=== PATIENT | male | born 1970 | race African-American/Black ===

== ENCOUNTER 2018-11-01 22:59 | Inpatient (IN) | payer OTHER ==
[2018-11-01] MEDS ORDERED: NS 0.9% 1000 ML** 1,000 ML IV ONE (23:02)
--- NOTE | 2018-11-01 23:07 | ED ---
Complex/Multi-Sys Presentation - HPI Summary HPI Summary: A 48 y/o M inmate brought in by ambulance presents to ED s/p suicide attempt onset [employer]. Patient was found hanging from a rope with a bag over his head, unresponsive and not breathing. It is unknown how long he was in that state. Detention staff got him down and began CPR. Pt's pulse returned and he began breathing. Per EMS, pt seized for "quite a while" was incontinent and unresponsive during that time. He was given Versed 4mg IV twice en route. Upon arrival, at bedside, patient states he can "taste" another sz coming. Pt has a PMHx: sz, and he says he takes Keppra, Dilantin, Gabapentin. He also complains of CP and RUE pain. CAT code called at 2300. - History Of Current Complaint Hx Obtained From: Patient, EMS, Medical Records, Other: - correctional staff Onset/Duration: Sudden Onset, Still Present Associated Signs And Symptoms: Positive: Chest Pain, Other - pos: suicide attempt, seizure, incontinence, unresponsiveness, RUE pain - Allergies/Home Medications Allergies/Adverse Reactions: Allergies Allergy/AdvReac Type Severity Reaction Status Date / Time NSAIDS (Non-Steroidal Allergy Unknown Verified 11/01/18 23:54 Anti-Inflamma Reaction Details Home Medications: Home Medications Ammonium Lactate 12% [Lac-Hydrin 12 %] 1 applic TOPICAL DAILY 11/02/18 [History Confirmed 11/02/18] Lisinopril [Lisinopril 2.5 MG-] 2.5 mg PO DAILY 11/02/18 [History Confirmed ] Phenytoin CAP(*) [Dilantin CAP(*)] 100 mg PO TID 11/02/18 [History Confirmed ] Tolnaftate [Tinactin] 1 applic TOPICAL DAILY 11/02/18 [History Confirmed ] levETIRAcetam [Keppra] 1,000 mg PO BID 11/02/18 [History Confirmed 11/02/18] raNITIdine HCl [Zantac 150 Maximum Streng] 150 mg PO DAILY 11/02/18 [History Confirmed 11/02/18] PMH/Surg Hx/FS Hx/Imm Hx Previously Healthy: No Cardiovascular History: Reports: Hx Hypertension Respiratory History: Reports: Hx Chronic Obstructive Pulmonary Disease (COPD) Neurological History: Reports: Hx Seizures - Family History Known Family History: Positive: Unknown - Social History Occupation: Unemployed - inmate Lives: Assisted - inmate Hx Tobacco Use: Yes Review of Systems Positive: Chest Pain Positive: Other - pos: not breathing (resolved) Positive: incontinence Musculoskeletal: Other - RUE pain Neurological: Other - pos: seizure; unresponsive (resolved) Psychological: Other - pos: suicide attempt All Other Systems Reviewed And Are Negative: Yes Physical Exam - Summary Physical Exam Summary: Appearance: male lying on stretcher answering questions appropriately Skin: Warm, dry, no obvious rash Eyes: sclera anicteric, no conjunctival pallor ENT: mucous membranes moist, pharynx appears normal. Voice is minimally hoarse. Neck: Supple, nontender. Red ligature carlisle. Respiratory: Clear to auscultation, no signs of respiratory distress. No stridor. Cardiovascular: Normal S1, S2. No murmurs. Normal distal pulses in tibial and radial bilaterally. Abdomen: Soft, nontender, normal active bowel sounds present Musculoskeletal: Normal, Strength/ROM Intact Neurological: Alert but slightly confused, he knows his name and where he is, but does not know the month or year. Psychiatric: affect is normal, does not appear anxious or depressed Triage Information Reviewed: Yes Vital Signs Reviewed: Yes - Maryjane Coma Scale Best Eye Response: 4 - Spontaneous Best Motor Response: 6 - Obeys Commands Best Verbal Response: 5 - Oriented Coma Scale Total: 15 Diagnostics - Laboratory Result Diagrams: 11/01/18 23:29 11/01/18 23:29 Lab Statement: Any lab studies that have been ordered have been reviewed, and results considered in the medical decision making process. - CT BRAIN CT Interpretation Completed By: Radiologist Summary of CT Findings: IMPRESSION: 1. No acute intracranial pathology. 2. Prominent left basal ganglia perivascular space, and less likely old lacunar infarct. 3. Mild mucosal thickening of the paranasal sinuses. ED provider has reviewed this report. C-SPINE CT Interpretation Completed By: Radiologist Summary of CT Findings: IMPRESSION: No acute cervical spine fracture. ED provider has reviewed this report. - EKG 2307 Cardiac Rate: NL - 81bpm EKG Rhythm: Sinus Rhythm Summary of EKG Findings: NSR at 81 BPM, P waves, QRS complex, and T waves are within normal limits, T waves and intervals are normal, no ischemic changes. Complex Multi-Symp Course/Dx Course Of Treatment: Pt is a 48 y/o M inmate brought in by ambulance presents to ED s/p suicide attempt. Patient was found hanging from a rope with a bag over his head, unresponsive and not breathing, for an unknown duration. Detention staff got him down and began CPR. Pt's pulse returned and he began breathing. Per EMS, pt seized for "quite a while" was incontinent and unresponsive during that time. He was given Versed 4mg IV twice en route. Upon arrival, at bedside, patient states he can "taste" another sz coming. Pt has a PMHx: sz, and he says he takes Keppra, Dilantin, Gabapentin. He also complains of CP and RUE pain. UA results are unremarkable. C-SPINE is negative for fracture. EKG is NSR at 81 BPM, P waves, QRS complex, and T waves are within normal limits, T waves and intervals are normal, no ischemic changes. Consulted with Dr. Kendrick, hospitalist, who accepts pt for admission to ICU. - Diagnoses Provider Diagnoses: Depressive disorder, Suicide attempt by hanging, Seizures, Status epilepticus - Physician Notifications Discussed Care Of Patient With: Shana Kendrick - hospitalist Time Discussed With Above Provider: 23:39 Instructed by Provider To: Other - Discussed case. Will discuss with ICU and call back. At 00:42, accepted pt for admission to ICU. - Critical Care Time Critical Care Time: 30-74 min Discharge - Sign-Out/Discharge Documenting (check all that apply): Patient Departure - ADMIT TO ICU - Discharge Plan Condition: Critical Disposition: ADMITTED TO [facility] - Billing Disposition and Condition Condition: CRITICAL Disposition: Admitted to [facility] - Attestation Statements Document Initiated by Scribe: Yes Documenting Scribe: Bambi Ordoñez Provider For Whom Scribe is Documenting (Include Credential): Dr. Bari Montes MD Scribe Attestation: Bambi Lieberman, scribed for Dr. Bari Montes MD on 11/02/18 at 0524. Scribe Documentation Reviewed: Yes Provider Attestation: The documentation as recorded by the Bambi simon accurately reflects the service I personally performed and the decisions made by me, Dr. Bari Montes MD Status of Scribe Document: Viewed
[2018-11-01] MEDS ORDERED: LORazepam INJ* 2 MG/ML 1 ML VIAL ONE (23:08)
[2018-11-01] MEDS ORDERED: LORazepam INJ* 2 MG/ML 1 ML VIAL IV PUSH ONE ×2 (23:36)
[2018-11-01 23:39] LABS: ABS Basophils 0.1 10^3/ul (0-0.2); ABS Eosinophils 0.4 10^3/ul (0-0.6); ABS Lymphocytes 1.9 10^3/ul (1.0-4.8); ABS Monocytes 0.7 10^3/ul (0-0.8); ABS Neutrophils 8.6 10^3/ul (1.5-7.7); ABS Nucleated RBC 0 10^3/ul; Eosinophil % 3.4 %; Hematocrit 41 % (42-52); Lymphocyte % 16.5 %; Mean Corpuscular HGB Conc 34 g/dl (31-36); Mean Corpuscular Hemoglobin 31 pg (27-31); Mean Corpuscular Volume 90 fL (80-94); Mean Platelet Volume 8.3 fL (7.4-10.4); Nucleated Red Blood Cells % 0; Platelet Count 201 10^3/ul (150-450); Red Cell Distribution Width 13 % (10.5-15); White Blood Count 11.6 10^3/ul (3.5-10.8)
[2018-11-01 23:55] LABS: Albumin 3.8 g/dL (3.2-5.2); Albumin/Globulin Ratio 1.5 (1-3); BUN/Creatinine Ratio 10.7 (8-20); Calcium 8.7 mg/dL (8.6-10.3); EGFR African American 135.1 (>60); EGFR Non-African American 111.6 (>60); Globulin 2.6 g/dL (2-4); Potassium 3.4 mmol/L (3.5-5.0); Total Bilirubin 0.3 mg/dL (0.2-1.0); Total Protein 6.4 g/dL (6.4-8.9)
[2018-11-02 00:01] LABS: Phenytoin 10.9 mcg/mL (10-20)
[2018-11-02] MEDS ORDERED: Ondansetron INJ* 2 MG/ML VIAL IV PRN (01:04)
[2018-11-02] MEDS ORDERED: NS 0.9% IV ONE (01:05)
[2018-11-02] MEDS ORDERED: PHENYTOIN IV ONE (01:05)
[2018-11-02] MEDS ORDERED: KCL 20 MEQ/100 ML IVPREMIX* 20 MEQ/100 ML BAG IV ONE (01:07)
[2018-11-02 01:10] LABS: Urine Appearance Clear; Urine Bilirubin Negative (Negative); Urine Blood Negative (Negative); Urine Color Yellow; Urine Glucose Negative (Negative); Urine Ketones Negative (Negative); Urine Nitrite Negative (Negative); Urine Protein Negative (Negative); Urine Specific Gravity 1.005 (1.010-1.030); Urine Urobilinogen Negative (Negative)
--- NOTE | 2018-11-02 01:48 | PN ---
Sepsis Event Evaluation Date of Evaluation: 11/02/18 Time of Evaluation: 01:47 Current Stage of Sepsis: Sepsis Vital Signs - Last 12 Hours: Vital Signs - 12 hr Temp Pulse Resp BP Pulse Ox 11/02/18 00:35 75 0 127/75 95 11/02/18 00:22 74 14 105/71 93 11/02/18 00:17 71 15 116/69 93 11/02/18 00:12 75 13 116/65 93 11/02/18 00:07 74 15 115/68 92 11/02/18 00:04 72 15 95 11/02/18 00:03 70 14 120/73 95 11/01/18 23:47 76 4 123/72 91 11/01/18 23:42 76 0 117/72 91 11/01/18 23:37 77 6 121/74 89 11/01/18 23:32 74 1 121/77 93 11/01/18 23:30 81 13 133/73 96 11/01/18 23:22 78 11 117/67 100 11/01/18 23:19 97.6 F 78 18 115/75 94 11/01/18 23:17 87 22 137/68 93 11/01/18 23:15 18 11/01/18 23:12 20 135/74 11/01/18 23:10 18 11/01/18 23:07 84 13 128/74 96 11/01/18 23:06 82 21 95 11/01/18 23:02 99 24 115/75 96 Lactic Acid: 11/01/18 23:30 Lactic Acid 1.2 - Cardiopulmonary Exam Capillary Refill: < or = to 5 seconds Respiratory: Symmetrical Chest Expansion and Respiratory Effort, Clear to Auscultation Cardiovascular: NL Sounds; No Murmurs; No JVD, RRR, No Edema - Peripheral Pulse Exam Radial Pulses: Bilateral Normal - Skin Exam Skin Exam: Pallor - [place] Coma Scale Best Eye Response: 4 - Spontaneous Best Motor Response: 6 - Obeys Commands Best Verbal Response: 5 - Oriented Coma Scale Total: 15 Assess/Plan/Problems-Billing Assessment:
--- NOTE | 2018-11-02 03:47 | HP ---
CC: Provider at [facility] * HISTORY AND PHYSICAL: DATE OF ADMISSION: 11/02/18 PRIMARY CARE PROVIDER: Provider at [facility]. CHIEF COMPLAINT: Cardiac arrest, status post hanging as a suicide attempt. HISTORY OF PRESENT ILLNESS: Mr. Guerra is a 48-year-old male who has a history of a seizure disorder, COPD, and hypertension, who presented to the emergency room after he was found hanging in his nursing home cell. The patient was unable to provide any history related to this while the guards state that he was found at approximately 10 p.m.; however, according to the emergency response form that comes from [facility], code was called at 9:50 p.m. CPR was started at 9:53 p.m. AED was applied at 9:58 p.m. and CPR was stopped at 10 :01 p.m. The patient did receive also 2 doses of IM Narcan. When the patient was found, he was reportedly found with a bag over his head hanging. He had to be cut down. The patient states that he tried to kill himself because he no longer wanted to be around. He does state that he had been lonely over the last few days. Reportedly, the patient by 10:11 p.m. was responding. The patient was brought in via [facility]. Reportedly en route, the patient had seizure activity. He was given 8 mg of Versed in the ambulance. Upon arrival, the patient again was noted to have seizure activity. He was given 4 mg of Ativan. At this point, the patient is somewhat sedated, though he does wake up and answers questions at times appropriately and other times with inappropriate answers. The patient currently is only complaining of pain in his right forearm and elbow area. He states that that developed this evening. He also states that his breathing feels somewhat slow. PAST MEDICAL HISTORY: 1. Seizure disorder. 2. COPD. 3. Hypertension. PAST SURGICAL HISTORY: 1. Hernia repair. 2. Left femur repair. MEDICATIONS: 1. Ranitidine 150 mg p.o. daily. 2. Keppra 1000 mg p.o. b.i.d. 3. Tinactin, apply topically daily. 4. Phenytoin 100 mg p.o. t.i.d. 5. Lisinopril 2.5 mg p.o. daily. 6. Ammonium lactate, apply topically daily. ALLERGIES: NSAIDS. FAMILY HISTORY: Unknown. SOCIAL HISTORY: The patient does smoke. He denies any recreational drug use. He is currently incarcerated at [facility]. He states that he is . He has 7 children. REVIEW OF SYSTEMS: The patient answers essentially 'yes' to every question asked, including fevers, chills, poor appetite, edema. He denies chest pain. He does admit to occasional cough and shortness of breath. He admits to nausea , vomiting. He admits to abdominal pain that has been crampy in nature. He complains of the right arm pain. Complains of being depressed and feeling lonely recently. The rest of the 11 system review of systems is negative. PHYSICAL EXAMINATION GENERAL: The patient is a well-developed, middle-aged male seen lying flat in the stretcher, in a cervical collar, in no acute distress. VITAL SIGNS: Blood pressure 127/75, pulse 75, respirations 14, temp 97.6, and O2 sat 95% on room air. HEENT: Pupils are equal and round. Extraocular muscles are intact. The conjunctivae are injected. Oropharynx is clear. Oral mucosa is moist. NECK: Not performed as the patient is in cervical collar. PULMONARY: Lungs are clear anteriorly and at the lateral bases. CARDIAC: Normal S1 and S2. Regular rate and rhythm. I do not appreciate any murmurs. ABDOMEN: Bowel sounds are present. Abdomen is soft, nondistended. He complains of tenderness to palpation in the bilateral lower quadrants. MUSCULOSKELETAL: There is full active range of motion of all 4 extremities. The patient does complain of right forearm pain with active range of motion and palpation. SKIN: Warm and dry. There is ligature jerzy around the patient's neck. There is a small shallow ulceration in the anterior midline neck. NEUROLOGIC: Cranial nerves II through XII appeared to be grossly intact. Sensation is intact to light touch throughout. Strength is normal throughout though the patient does not give a good effort. PSYCH: The patient is alert. He is oriented to situation. He does drift to sleep easily. LABORATORY DATA: WBC 11.6, hemoglobin 14.0, hematocrit 41, platelets 201. Sodium 137, potassium 3.4, chloride 106, CO2 of 25. BUN 8, creatinine 0.75. Glucose 77. Lactic acid 1.2. Calcium 8.7. Bilirubin 0.3. AST 19, ALT 21, alk phos 110. Albumin 3.8. Phenytoin 10.9. IMAGING STUDIES: EKG reveals normal sinus rhythm without any acute ST-T wave abnormalities. CT brain reveals no acute intracranial pathology. Prominent left basal ganglia, perivascular space and less likely old lacunar infarct. Mild mucosal thickening of the paranasal sinuses. CT cervical spine reveals no acute cervical spine fracture. ASSESSMENT AND PLAN: Mr. Guerra is a 48-year-old male with a history of seizure disorder, prior suicide attempt based on records from [facility], and chronic obstructive pulmonary disease, who presents to the emergency room after he was found hanging in his nursing home cell without a pulse, with initiation of CPR and return of spontaneous circulation, followed by seizure activity en route to the hospital and in the emergency room. 1. Cardiac arrest. At this point, the patient has returned to spontaneous circulation and is awake. He will be monitored in the intensive care unit on telemetry. No further interventions will be needed at this time. 2. Hanging attempt. The patient does have ligature carlisle around his neck. Local wound care will be performed. We will need to discuss with [facility] if the patient needs psychiatry consultation while in the hospital or if they will manage from the correction. 3. Seizure disorder. The patient reportedly had seizures en route to the hospital and in the ER. It is unclear how long or if the patient was hypoxic/ anoxic. I did speak with Dr. Mills. Due to his seizure activity and a low- normal phenytoin level, he recommended administering phenytoin 300 mg IV x1 followed by resuming the patient's usual dose. The patient will need the phenytoin level in a couple of days. 4. Chronic obstructive pulmonary disease. There are no signs of exacerbation at this point. We will monitor. 5. Hypertension. The patient's blood pressure is under good control. We will continue lisinopril 2.5 mg p.o. daily. 6. DVT prophylaxis: According to the Adult Thrombosis Prophylaxis Risk Factor Assessment Guide, the patient has a total risk factor score of 2 making him moderate risk. Heparin 5000 units subcutaneous q.12 hours will be utilized for DVT prophylaxis. Code status is full. TIME SPENT: 65 minutes of critical care time was spent on this admission. [id number]/[facility] #: [id number] [facility]
[2018-11-02] MEDS: NS 0.9% 1000 ML** 1,000 ML IV SCH ×2 (04:46→12:08)
[2018-11-02 05:56] LABS: Hematocrit 41 % (42-52); Mean Corpuscular HGB Conc 34 g/dl (31-36); Mean Corpuscular Hemoglobin 31 pg (27-31); Mean Corpuscular Volume 91 fL (80-94); Mean Platelet Volume 8.7 fL (7.4-10.4); Platelet Count 198 10^3/ul (150-450); Red Blood Count 4.54 10^6/ul (4.00-5.40); Red Cell Distribution Width 14 % (10.5-15); White Blood Count 10.8 10^3/ul (3.5-10.8)
[2018-11-02 06:16] LABS: BUN/Creatinine Ratio 12.1 (8-20); Calcium 8.8 mg/dL (8.6-10.3); EGFR African American 181.7 (>60); EGFR Non-African American 150.2 (>60); Potassium 3.8 mmol/L (3.5-5.0)
[2018-11-02] MEDS: Acetaminophen TAB* 325 MG PO PRN ×3 (07:01→22:29)
[2018-11-02] MEDS: Phenytoin CAP(*) 100 MG CAP.ER PO SCH ×3 (08:58→20:21)
[2018-11-02] MEDS: Heparin VIAL(*) 5000 UNITS/ML VIAL (FIVE THOUSAND) SUBCUT SCH ×2 (08:58→20:21)
[2018-11-02] MEDS: Famotidine TAB* 20 MG PO SCH (08:58)
[2018-11-02] MEDS: Lisinopril TAB* 5 MG PO SCH (08:59)
[2018-11-02] MEDS ORDERED: levETIRAcetam TAB* 500 MG PO SCH (09:00)
--- NOTE | 2018-11-02 10:02 | PN ---
Subjective Date of Service: 11/02/18 Interval History: pt c/o pain in the left side of his ribs (pleuritic) after CPR last night. Pt tried to commit suicide a year ago also at another long-term. Had been incarcerated x 13 years, planned to be released in one year Use to be on gabapentin /Keppra/Dilantin, then Gabapentin was stopped and pt started having up to 3 seizures in a week in the past several months Objective Active Medications: Acetaminophen (Tylenol Tab*) 650 mg PO Q4H PRN PRN Reason: PAIN Last Admin: 11/02/18 07:01 Dose: 650 mg Famotidine (Pepcid Tab*) 20 mg PO DAILY [facility]; Protocol Last Admin: 11/02/18 08:58 Dose: 20 mg Heparin Sodium (Porcine) (Heparin Vial(*)) 5,000 units SUBCUT Q12HR [facility] Last Admin: 11/02/18 08:58 Dose: 5,000 units Sodium Chloride (Ns 0.9% 1000 Ml*) 1,000 mls @ 150 mls/hr IV PER RATE [facility] Last Admin: 11/02/18 04:46 Dose: 150 mls/hr Levetiracetam (Keppra Tab*) 1,000 mg PO BID [facility] Last Admin: 11/02/18 08:59 Dose: 1,000 mg Lisinopril (Prinivil Tab*) 2.5 mg PO DAILY [facility] Last Admin: 11/02/18 08:59 Dose: 2.5 mg Ondansetron HCl (Zofran Inj*) 4 mg IV Q6H PRN PRN Reason: NAUSEA Phenytoin Sodium (Dilantin Cap(*)) 100 mg PO TID [facility] Last Admin: 11/02/18 08:58 Dose: 100 mg Vital Signs - 8 hr 11/02/18 11/02/18 11/02/18 02:06 02:20 02:35 Temperature Pulse Rate Respiratory 9 13 10 Rate Blood Pressure 110/63 119/76 119/72 (mmHg) O2 Sat by Pulse Oximetry 11/02/18 11/02/18 11/02/18 02:50 02:54 03:00 Temperature 98.2 F 98.3 F Pulse Rate 67 Respiratory 11 16 13 Rate Blood Pressure 127/71 127/71 (mmHg) O2 Sat by Pulse 95 Oximetry 0111/02/18 11/02/18 03:05 03:20 03:43 Temperature Pulse Rate 74 Respiratory 14 12 14 Rate Blood Pressure 127/79 132/79 127/87 (mmHg) O2 Sat by Pulse 98 Oximetry 11/02/18 11/02/18 11/02/18 03:45 04:00 04:01 Temperature 98.3 F Pulse Rate 67 65 64 Respiratory 8 13 13 Rate Blood Pressure 144/91 123/80 (mmHg) O2 Sat by Pulse 98 96 97 Oximetry 11/02/18 11/02/18 11/02/18 04:15 04:30 04:45 Temperature Pulse Rate 62 62 63 Respiratory 12 14 12 Rate Blood Pressure 127/78 131/80 118/71 (mmHg) O2 Sat by Pulse 95 95 94 Oximetry 11/02/18 11/02/18 11/02/18 05:00 05:01 05:15 Temperature Pulse Rate 59 61 63 Respiratory 15 10 11 Rate Blood Pressure 112/71 121/71 (mmHg) O2 Sat by Pulse 93 94 93 Oximetry 11/02/18 11/02/18 11/02/18 05:30 05:47 06:00 Temperature Pulse Rate 61 62 59 Respiratory 12 12 11 Rate Blood Pressure 116/70 119/69 105/66 (mmHg) O2 Sat by Pulse 94 95 96 Oximetry 11/02/18 11/02/18 11/02/18 06:01 06:15 06:30 Temperature Pulse Rate 59 58 60 Respiratory 13 11 13 Rate Blood Pressure 113/68 114/65 (mmHg) O2 Sat by Pulse 95 95 95 Oximetry 11/02/18 11/02/18 11/02/18 06:45 07:00 07:01 Temperature Pulse Rate 58 70 65 Respiratory 13 15 11 Rate Blood Pressure 111/69 111/69 (mmHg) O2 Sat by Pulse 95 94 95 Oximetry 11/02/18 11/02/18 11/02/18 07:15 07:30 08:00 Temperature 98.5 F Pulse Rate 64 57 Respiratory 15 10 Rate Blood Pressure 113/65 122/65 (mmHg) O2 Sat by Pulse 94 95 Oximetry Oxygen Devices in Use Now: None Appearance: 48 yo M in nAD, aAOx3 Eyes: No Scleral Icterus, PERRLA Ears/Nose/Mouth/Throat: NL Teeth, Lips, Gums, Mucous Membranes Moist Neck: NL Appearance and Movements; NL JVP, Trachea Midline Respiratory: Symmetrical Chest Expansion and Respiratory Effort, Clear to Auscultation Cardiovascular: NL Sounds; No Murmurs; No JVD, RRR Abdominal: NL Sounds; No Tenderness; No Distention, No Hepatosplenomegaly Lymphatic: No Cervical Adenopathy Extremities: No Edema, No Clubbing, Cyanosis Skin: No Nodules or Sclerosis, - - small anterior neck abrasion after ligature- approx 2 cm in diam, not infected Neurological: Alert and Oriented x 3, NL Muscle Strength and Tone Result Diagrams: 11/02/18 05:44 11/02/18 05:44 Microbiology and Other Data: Microbiology 11/02/18 05:30 Nasal Screen MRSA (PCR) - Final Nasal Mrsa Not Detected Assess/Plan/Problems-Billing Assessment: 48 yo prisoner with h/o suicidal attempts in the past and seizure disorder brought in from [place] after he tried to hang himself. Last suicidal attempt 1 yr ago. Pt received 5 m in CPR at long-term. Had a seizure en route to [facility] H/o seizure disorder with generalized tonic clonic seizures upt o 3x/week - Patient Problems (1) Suicide attempt by hanging Comment: apart for a small abrasion on neck and left sided pleuritic CP, pt feels well. Passed swalow eval and is back to regular diet. Psychiatry asked to see pt. Cont 1:1 obs. Transfer to med floor (2) Seizure Comment: pt stated that after gabapentin was d/c'd several months ago he has had 3 seizures/week. D/w / Lina. will check EEG, d/c Keppra(due to SI), cont Dilantin. Neuro will see in consult (3) Hypertension Comment: controlled, cont lisinopril (4) DVT prophylaxis Comment: low risk , ambulation Status and Disposition: inpatient
[2018-11-02] MEDS: Lidocaine PATCH 5%* 1 PATCH TRANSDERM SCH (11:35)
[2018-11-02] MEDS: Nicotine PATCH 14 MG/24 HR* PATCH TRANSDERM SCH (11:39)
--- NOTE | 2018-11-02 13:42 | CONS ---
CONSULTATION REPORT: DATE OF CONSULT: 11/02/18 PATIENT OF: Dr. Weaver and the provider at [facility]. HISTORY OF PRESENT ILLNESS: This is a 48-year-old man who had an attempted suicide yesterday when he was found hanging in his prison cell. He had a code with CPR and received Narcan. He is back to his baseline without any problems other than hurting arm following his arrest from his hanging, he had some seizure activity. He has a longstanding history of seizures, has been maintained on gabapentin and Dilantin. He had a suicidal attempt a year ago while on the gabapentin. In the past 2 to 3 months time, he was switched from gabapentin to Keppra and he continues to have seizures perhaps twice a week, as best as we can tell they are major motor seizures. PAST MEDICAL HISTORY: His past medical history significant for seizure disorder , COPD, hypertension. PAST SURGICAL HISTORY: Status post herniorrhaphy, left femur repair. MEDICATIONS: Include: 1. Dilantin 100 mg t.i.d. 2. Keppra 1000 mg b.i.d. 3. Tinactin topically daily. 4. Ranitidine 150 daily. 5. Lisinopril 2.5 daily. 6. Ammonium lactate topically daily. He is not on anything for his depression and he has some ongoing depression. ALLERGIES: He is allergic to NSAIDs. FAMILY HISTORY: His family is unknown. SOCIAL HISTORY: He smokes, does not drink or have recreational drug use. He is with 7 kids. REVIEW OF SYSTEMS: Negative in all 14 spheres other than some depression and occasional cough. PHYSICAL EXAM: Temperature 98.5, pulse 57, respirations 10, blood pressure 122/ 65. He is alert and oriented x3 with normal speech and comprehension. Cranial nerve II though XII were intact. Fundi were benign. Motor exam reveals normal tone and strength, coordination. Sensation is intact to light touch. Reflexes are 2+ and equal downgoing toes. Chest: Clear. Cardiovascular: Regular rate and rhythm. Abdomen: Soft, positive bowel sounds. DIAGNOSTIC STUDIES/LAB DATA: His cervical spine CT showed no acute cervical spine fracture. His brain CT scan showed no acute pathology. There is prominent left basal ganglia perivascular space. Labs include normal CBC. Normal CMP. Negative UA. Dilantin level 10.9. ASSESSMENT AND PLAN: Anil should not be on Keppra. It can cause or worsen depression in somebody who is depressed with a significant suicide attempt. He should not remain on the Keppra; we are stopping that. Since he has ongoing seizures, we will switch perhaps to Depakote, but I want to any an EEG first. It seems like he truly has organic seizures, whether there is a mixture of seizures secondary to psychological issue is hard to say, but the safest thing would be to substitute the Keppra with another anticonvulsant. Discussed with Dr. Weaver. My full recommendation will be after the EEG. Thank you for sharing this case. [id number]/[facility] #: [id number] [facility]
[2018-11-02] MEDS: Venlafaxine EXT RELEASE CAP* 75 MG PO SCH (14:46)
[2018-11-02] MEDS ORDERED: Divalproex DR TAB(*) 500 MG PO ONE (16:00)
--- NOTE | 2018-11-02 16:45 | CONS ---
CONSULTATION REPORT: DATE OF CONSULTATION: 11/02/18 DATE OF ADMISSION: 11/02/18 ATTENDING PHYSICIAN: Dr. Ann Weaver CONSULTING PHYSICIAN: Dr. Wilmer Burton. REASON FOR CONSULT: Suicide attempt. SUBJECTIVE HISTORY: The patient is a 48-year-old Nigerien immigrant who is currently incar cerated at the [facility], [facility] in [place], [place], who apparently had a suicide attempt via hanging, my understanding is that he was pulled down from a sheet in his room whe re he had a suicide note next to him. He needed cardiopulmonary resuscitation and they stated that a t the same time they administered Narcan, although it is uncertain whether he used opioid drugs. Fro m there, he was brought to the hospital and briefly hospitalized in our ICU, although he is pending t ransferred to the medical unit as his injuries do not require further intensive care. I understand t hat he has a history of a seizure disorder and apparently had a seizure while en route to the [facility]. Today, when I meet with him, he is somewhat sleepy, but able to make good eye contact and able to give his account. He states that his mood has been poor lately secondary to struggles with one of h is expartners, who has not been sending him as much money recently. 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 He states that he often hears their voices, talking to him and wonders why he lived when they did not. An additional source of pain is that sev eral years ago his 12- year-old son was murdered by a drug dealer while apparently attempting to isabel larize the drug dealer's car. The patient feels as though if he was out of shelter he could have prev ented this. The patient does endorse 1 prior suicide attempt in the summer of 2017. He apparently a ttempted to hang himself while prisoner at the [facility] in [place], [place]. From , he was sent to an ICU for approximately 1 week and from there transferred to the [facility] here in [facility]. [facility] then referred him to the [facility] in [place], [place] where he received treatment between May and July 8. Since returning to [facility], he has not endorse any further suicidal ideations. Much of this h istory was corroborated by the patient's social science instructor at the shelter whose name is Andrea Moreno. Nayla argueta Josh indicated that the patient would be placed on suicide precautions when he returns to their facility and would be referred once again to the [facility]. Symptomatically, the caryn ent is endorsing extreme anxiety auditory hallucinations, depressed mood. He is not manpreet for safety at this time, stating that he will likely kill himself if he does not return to the [facility] for further care. He notes that he is set to be released from shelter in approximately 10 mon ths. PAST PSYCHIATRIC HISTORY: The patient was treated at the [facility] in [place], [place] between May and July of 2018. He denies any prior psychiatric treatment be fore this. His diagnoses were PTSD, antisocial personality disorder and major depression. His medic ations currently include Effexor XR, Wellbutrin, prazosin and he states in the past he has used rispe ridone successfully for anxiety and he is requesting resumption of this. The patient denies any other attempts to end his other than the 2 hangings attempts while incarc erated. The patient's current psychiatrist is Dr. Guerin at [facility]. SUBSTANCE ABUSE HISTORY: The patient states that he is a social alcohol drinker. 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 Jail offic ials are requesting urine drug screen given the fact that he was revived with Narcan, however, this o ccurred at the same time as he was receiving chest compressions through CPR. MEDICAL HISTORY: Significant for seizure disorder, COPD, hypertension. He has had surgical history of hernia repair and left femur repair. MEDICATIONS: Include: 1. Ranitidine 150 mg daily. 2. Keppra 1000 mg twice daily. 3. Dilantin 100 mg t.i.d. 4. Effexor XR 150 mg daily. 5. Wellbutrin SR 100 mg b.i.d. 6. Prazosin 1 mg p.o. q.h.s. ALLERGIES: The patient states that he is allergic to NONSTEROIDAL ANTI- INFLAMMATORIES. FAMILY HISTORY: Noncontributory. SOCIAL HISTORY: The patient was born in [place] where he was recruited into a [employer] organization at the age of 15. He served with them until the age of 18 when he immigrated to the [place] in [facility]. The patient has been and . He has 7 different child travis, ages 15 to 32 from several different women, mostly he has resided in [place], although he had some family in [place] and it is his intention to return to [place] after release from shelter to reconnect with some of his children. He was arrested approximately 13 years ago and given 10 years i n care home of a burglary and attempt to sell narcotics. He states that his sentence was prolonged while in care home due to bad behavior. He does deny any history of violence towards others. The patient ident ifies as Shinto by upbringing. He is not currently romantically connected with anyone, although he states that he gets money from one of his children's mother. MENTAL STATUS EXAM: The patient is a middle-aged male with graying hair. He is laying on hi s back propped up in a medical bed in the ICU. He is accompanied by 1 hospital aide who is his one-t o-one along with 2 corrections officers. The patient is calm, cooperative, makes good eye contact. His speech is fluent Swedish with somewhat low tones, but he is able to articulate himself well. Moo d appears to be depressed with a constricted affect. Thought process is linear, goal- directed. Tho ught content is significant for suicidal ideations. He denies homicidality. Insight and judgment ar e fair given his willingness to receive psychiatric treatment. Cognitively, he is awake, although so mewhat sleepy. DIAGNOSES: As follows: Heth I: Major depressive disorder, recurrent, moderate, post-traumatic stres s disorder. Heth II: Antisocial personality disorder by history. IMPRESSION: The patient is a 48-year-old Nigerien immigrant with a history of early life c ombat exposure and [facility], who was sent by the [facility] after being discovered attempting to hang himself by a sheet in his rojas l. The patient is endorsing traumatic memories, depressed mood, anxiety, and auditory hallucinations and he is requesting referral back to the [facility] in [facility]. I have spoken with his social science instructor, Andrea Moreno at [facility], who indicates that the tea m there, including his psychiatrist, Dr. Guerin are intending to place him on suicide precautions and to refer him back to the [facility]. The patient is requesting continuation of his cur rent medications along with resumption of risperidone, which she states helps his hallucinations and anxiety. RECOMMENDATIONS TO PRIMARY TEAM: Psychiatry has placed orders for Risperdal, prazosin, Effexor and W ellbutrin. We will also place an order for urine drug screen at the request of the shelter, The caryn ent is denying use of substances of abuse. At this time, we recommend that he return for psychiatric treatment through the state correctional system. Psychiatry will be signing off at this time. Thank you for the consult. [id number]/[facility] #: [id number]
[2018-11-02] MEDS: buPROPion SR TAB.SR* 100 MG PO SCH (18:27)
[2018-11-02] MEDS: Lidocaine Patch REMOVE* 1 NOTE MISC SCH (20:21)
[2018-11-02] MEDS: Prazosin CAP* 1 MG PO SCH (20:21)
[2018-11-02] MEDS: Divalproex DR TAB(*) 250 MG PO SCH (20:21)
[2018-11-02] MEDS: risperiDONE TAB* 1 MG PO SCH (20:21)
--- NOTE | 2018-11-02 21:59 | EEG ---
ELECTROENCEPHALOGRAPHY: DATE OF STUDY: 11/02/18 - ROOM #403 PATIENT OF: Dr. Weaver. CLINICAL PROBLEM: This is a 48-year-old man with a longstanding history of seizures being evaluated after a suicide attempt by hanging. MEDICATIONS: Include: 1. Dilantin. 2. Famotidine. 3. Lisinopril. 4. Zofran. 5. Keppra. REPORT: With the patient awake, background cerebral activity consists of moderate amplitude, posterior dominant 8 Hz rhythm, which attenuates with eye opening, reappears with eye closure. At times, the patient becomes drowsy with some slowing into the theta range, but the patient never falls asleep. At times , there is some twitching in an arm or leg. This is not associated with any epileptiform potentials. No focal abnormalities, major asymmetries of background or epileptiform potentials were noted. CLINICAL IMPRESSION: This awake and drowsy EEG is within normal limits. [id number]/[facility] #: [id number] MTDD
[2018-11-02] MEDS: Docusate CAP* 100 MG PO PRN (22:29)
[2018-11-03] MEDS: Nicotine PATCH 14 MG/24 HR* PATCH TRANSDERM SCH (08:53)
[2018-11-03] MEDS: Venlafaxine EXT RELEASE CAP* 75 MG PO SCH (08:54)
[2018-11-03] MEDS: Acetaminophen TAB* 325 MG PO PRN ×2 (08:54→14:14)
[2018-11-03] MEDS: Phenytoin CAP(*) 100 MG CAP.ER PO SCH ×3 (08:54→22:24)
[2018-11-03] MEDS: Lidocaine PATCH 5%* 1 PATCH TRANSDERM SCH (08:54)
[2018-11-03] MEDS: Divalproex DR TAB(*) 250 MG PO SCH ×2 (08:55→22:25)
[2018-11-03] MEDS: Lisinopril TAB* 5 MG PO SCH (08:55)
[2018-11-03] MEDS: Heparin VIAL(*) 5000 UNITS/ML VIAL (FIVE THOUSAND) SUBCUT SCH ×2 (08:55→22:27)
[2018-11-03] MEDS: Famotidine TAB* 20 MG PO SCH (08:55)
[2018-11-03] MEDS: buPROPion SR TAB.SR* 100 MG PO SCH ×2 (09:01→17:03)
--- NOTE | 2018-11-03 09:56 | PN ---
Subjective Date of Service: 11/03/18 Interval History: Pt c/o feeling "sore in his chest " after CPR. still c/o feeling depressed. Objective Active Medications: Acetaminophen (Tylenol Tab*) 650 mg PO Q4H PRN PRN Reason: PAIN Last Admin: 11/03/18 08:54 Dose: 650 mg Bupropion HCl (Wellbutrin Sr Tab*) 100 mg PO 0800,1700 [facility] Last Admin: 11/03/18 09:01 Dose: 100 mg Divalproex Sodium (Depakote Dr Tab(*)) 750 mg PO BID [facility] Last Admin: 11/03/18 08:55 Dose: 750 mg Docusate Sodium (Colace Cap*) 100 mg PO BID PRN PRN Reason: CONSTIPATION Last Admin: 11/02/18 22:29 Dose: 100 mg Famotidine (Pepcid Tab*) 20 mg PO DAILY [facility]; Protocol Last Admin: 11/03/18 08:55 Dose: 20 mg Heparin Sodium (Porcine) (Heparin Vial(*)) 5,000 units SUBCUT Q12HR [facility] Last Admin: 11/03/18 08:55 Dose: 5,000 units Lidocaine (Lidoderm 5% Patch*) 1 patch TRANSDERM DAILY [facility] Last Admin: 11/03/18 08:54 Dose: 1 patch Lisinopril (Prinivil Tab*) 2.5 mg PO DAILY [facility] Last Admin: 11/03/18 08:55 Dose: 2.5 mg Nicotine (Nicotine Patch 14 Mg/24 Hr*) 1 patch TRANSDERM DAILY [facility] Last Admin: 11/03/18 08:53 Dose: 1 patch Ondansetron HCl (Zofran Inj*) 4 mg IV Q6H PRN PRN Reason: NAUSEA Pharmacy Profile Note (Lidocaine Patch Remove*) 1 note N/A 2100 [facility] Last Admin: 11/02/18 20:21 Dose: 1 note Phenytoin Sodium (Dilantin Cap(*)) 100 mg PO TID [facility] Last Admin: 11/03/18 08:54 Dose: 100 mg Prazosin HCl (Minipress Cap*) 1 mg PO BEDTIME [facility] Last Admin: 11/02/18 20:21 Dose: 1 mg Risperidone (Risperdal*) 1 mg PO BEDTIME [facility] Last Admin: 11/02/18 20:21 Dose: 1 mg Venlafaxine HCl (Effexor Xr Cap*) 150 mg PO DAILY [facility] Last Admin: 11/03/18 08:54 Dose: 150 mg Vital Signs - 8 hr 11/03/18 11/03/18 11/03/18 03:28 03:32 07:21 Temperature 97.2 F 98.0 F Pulse Rate 70 62 Respiratory 18 18 Rate Blood Pressure 93/45 120/50 105/62 (mmHg) O2 Sat by Pulse 93 98 Oximetry 11/03/18 08:00 Temperature Pulse Rate Respiratory 18 Rate Blood Pressure (mmHg) O2 Sat by Pulse Oximetry Oxygen Devices in Use Now: None Appearance: 48 yo M in nAD, AAOx3 Eyes: No Scleral Icterus, PERRLA Ears/Nose/Mouth/Throat: NL Teeth, Lips, Gums, Mucous Membranes Moist Neck: NL Appearance and Movements; NL JVP, Trachea Midline Respiratory: Symmetrical Chest Expansion and Respiratory Effort, Clear to Auscultation Cardiovascular: NL Sounds; No Murmurs; No JVD, RRR Abdominal: NL Sounds; No Tenderness; No Distention, No Hepatosplenomegaly Lymphatic: No Cervical Adenopathy Extremities: No Edema, No Clubbing, Cyanosis Skin: No Nodules or Sclerosis, - - base of neck small abrasion and ecchymoses/ ligature carlisle noted-not infected Neurological: Alert and Oriented x 3, NL Muscle Strength and Tone Result Diagrams: 11/02/18 05:44 11/02/18 05:44 Microbiology and Other Data: Microbiology 11/02/18 05:30 Nasal Screen MRSA (PCR) - Final Nasal Mrsa Not Detected Assess/Plan/Problems-Billing Assessment: 48 yo prisoner with h/o suicidal attempts in the past and seizure disorder brought in from [place] after he tried to hang himself. Last suicidal attempt 1 yr ago. Pt received 5 m in CPR at penitentiary. Had a seizure [place] route [place] [facility] [place]/o seizure disorder with generalized tonic clonic seizures upt o 3x/week - Patient Problems (1) Suicide attempt by hanging Comment: apart for a small abrasion on neck and left sided pleuritic CP (rib xray shows no fx), pt feels well. Passed swalow eval and is back to regular diet. Psychiatry Yfn'd for pt to go to psychiatric facility within the penitentiary system. Cont 1:1 obs. (2) Seizure Comment: pt stated that after gabapentin was d/c'd several months ago he has had 3 seizures/week. D/w / Lina. EEG WNL, d/c Wayneppra(due to SI), cont Dilantin. started Depakote (3) Hypertension Comment: controlled, cont lisinopril (4) DVT prophylaxis Comment: low risk , ambulation Status and Disposition: inpatient. Medically ready for discharge
[2018-11-03] MEDS: Docusate CAP* 100 MG PO PRN (14:16)
[2018-11-03] MEDS: traMADol TAB* 50 MG PO PRN (22:23)
[2018-11-03] MEDS: Prazosin CAP* 1 MG PO SCH (22:23)
[2018-11-03] MEDS: Lidocaine Patch REMOVE* 1 NOTE MISC SCH (22:29)
[2018-11-03] MEDS: risperiDONE TAB* 1 MG PO SCH (22:29)
--- NOTE | 2018-11-04 00:20 | DS ---
CC: Dr. Burton; Dr. Mills; Dr. Curtis from [facility] * DISCHARGE SUMMARY: DATE OF ADMISSION: 11/02/18 DATE OF ANTICIPATED DISCHARGE: 11/04/18 in the morning. PRIMARY CARE PROVIDER: Dr. Curtis from [facility]. DISCHARGE DIAGNOSES: 1. Suicidal attempt by hanging. 2. Seizure disorder. SECONDARY DIAGNOSES: 1. History of suicidal attempts in the past. 2. History of depression. 3. History of seizure disorder. 4. History of chronic obstructive pulmonary disease. 5. History of hypertension. MEDICATIONS AT DISCHARGE: Include: 1. Lac-Hydrin 1 application topically on a p.r.n. basis to the affected areas. 2. Lisinopril 2.5 mg daily. 3. Dilantin ER 100 mg 3 times a day. 4. Zantac 150 mg daily. 5. Tinactin 1 application topically to the affected area daily. 6. Acetaminophen on a p.r.n. basis. 7. Bupropion SR 100 mg daily. 8. Depakote 750 mg b.i.d. 9. Prazosin 1 mg at bedtime. 10. Risperdal 1 mg at bedtime. 11. Effexor XR 150 mg daily. CONSULTATIONS DURING THE HOSPITAL STAY: Include Dr. Mills from Neurology, Dr. Burton from Psychiatry. LABORATORY DATA AND STUDIES PERFORMED DURING THE HOSPITAL STAY: Include: On white blood cell count of 10.8, hemoglobin of 14.0, hematocrit of 41, and platelets of 198. Sodium 139, potassium 3.8, chloride 110, carbon-dioxide 26, BUN 7, and creatinine 0.58. Phenytoin level was 10.9 at admission. The patient's EEG obtained on 11/02/18, impression: "This awake and drowsy EEG is within normal limits." Rib x-rays on the left to rule out fracture showed "no displaced rib fracture or pneumothorax." Elbow x-ray on 11/02/18 showed no fracture. C-spine CT obtained at admission on 11/01/18, impression: "No acute cervical spine fracture." Brain CT, impression: "No acute intracranial pathology. Prominent left basal ganglia perivascular space and less likely old lacunar infarct. Mild mucosal thickening of the paranasal sinuses." HOSPITAL COURSE: Anil Guerra is a 48-year-old male with a history of depression and seizure disorder, who tried to commit suicide by hanging. He was brought to the hospital on 11/01/18 just before midnight after he tried to hang himself with a bedsheet wrapped around his neck and attached to the top bunk bed. He also, in addition to that, put a plastic bag around his head. He had CPR performed for a few minutes at [facility], but he regained consciousness during that time and he was subsequently transported to [facility] for further evaluation. Here he stayed overnight in the intensive care unit. He passed swallow eval and he was fully coherent with no evidence of neuro deficits. Apparently, on the way to our ER, he did have one seizure. On further evaluation of the patient, the patient noted that he has had seizures up to approximately 3 times a week in the past several months. Dr. Mills saw the patient in neurology evaluation and recommended discontinuation of Keppra due to the patient's suicidal ideation and placing the patient on Depakote. It is recommended for the patient to have a level of Depakote checked in approximately 1 week in addition to complete metabolic panel and CBC to follow up. During the patient's hospital stay, the patient was evaluated by Dr. Burton who restarted the patient's antidepressants from [facility]. The patient was deemed to be a candidate for further psychiatric monitoring in a psychiatric facility within the [facility] system and he is going to be transferred to [facility] back on 11/04/18. Once again, it is recommended for the patient to have the Depakote level checked as well as complete metabolic panel and CBC in approximately 1 week to follow up Depakote treatment. The patient was discontinued from Keppra during the hospital stay. For physical exam at discharge, please see daily progress notes; but shortly, apart from a small abrasion on the anterior base of his neck as well as small ecchymotic areas at the base of the patient's neck after the carlisle from ligature , there are no other abnormalities noted on exam. The patient does complain of some pleuritic chest pain after a CPR was administered at admission. Please note that this is a short summary of the patient's hospitalization. Please refer to further medical history for details. TIME SPENT: Approximately 40 minutes were spent on the patient's discharge. [id number]/[facility] #: [id number] NUVANCE HEALTHEkaterina
[2018-11-04 08:04] VITALS: BP 136/79
[2018-11-04] MEDS: traMADol TAB* 50 MG PO PRN (08:28)
[2018-11-04] MEDS: Famotidine TAB* 20 MG PO SCH (08:29)
[2018-11-04] MEDS: buPROPion SR TAB.SR* 100 MG PO SCH (08:29)
[2018-11-04] MEDS: Lisinopril TAB* 5 MG PO SCH (08:29)
[2018-11-04] MEDS: Divalproex DR TAB(*) 250 MG PO SCH (08:30)
[2018-11-04] MEDS: Phenytoin CAP(*) 100 MG CAP.ER PO SCH (08:30)
[2018-11-04] MEDS: Venlafaxine EXT RELEASE CAP* 75 MG PO SCH (08:30)
[2018-11-04] MEDS: Lidocaine PATCH 5%* 1 PATCH TRANSDERM SCH (08:31)
[2018-11-04] MEDS: Heparin VIAL(*) 5000 UNITS/ML VIAL (FIVE THOUSAND) SUBCUT SCH (08:31)
[2018-11-04] MEDS: Nicotine PATCH 14 MG/24 HR* PATCH TRANSDERM SCH (08:31)
== END 2018-11-04 11:05 | DRG 196 ==
LOC: EDBD → ED 22:59 → EEVIPCON 11-02 01:04 → ICU 11-02 01:04 → MED 11-02 17:24
PROVIDERS: ADMIT Hospitalist; ATTEND Internal Medicine
DX: I46.9 Cardiac arrest, cause unspecified (principal); F33.1 Major depressive disorder, recurrent, moderate; S10.91XA Abrasion of unspecified part of neck, initial encounter; G40.909 Epilepsy, unspecified, not intractable, without status epilepticus; J44.9 Chronic obstructive pulmonary disease, unspecified; F17.210 Nicotine dependence, cigarettes, uncomplicated; F43.10 Post-traumatic stress disorder, unspecified; F60.2 Antisocial personality disorder; M25.521 Pain in right elbow; R07.89 Other chest pain; X83.8XXA Intentional self-harm by other specified means, initial encounter; Y92.143 Cell of prison as the place of occurrence of the external cause; Z79.899 Other long term (current) drug therapy; Z88.6 Allergy status to analgesic agent
CPT/HCPCS: 36415; 70450; 72125; 80048; 80053; 80185; 81003; 83605; 85025; 85027; 87641; 93005; 94150; 95819; 99285; A9270-GY; J1165; J1644; J2060; J3480